=== PATIENT | male | born 1970 | race Caucasian/White ===

== ENCOUNTER 2017-10-24 17:07 | Emergency (ER) | payer BC ==
[~2017-10-24] VITALS: Ht 190.5 cm; Wt 113.4 kg
[2017-10-24] MEDS ORDERED: ATIVAN2 MG PO (19:15)
--- NOTE | 2017-10-25 19:06 | EKG ---
[facility] [address] [facility] [place] [address] Signed Sinus tachycardia Nonspecific T wave abnormality Abnormal ECG No previous ECGs available Confirmed by DENISSE AYALA MD ([id number] on 10/25/2017 7:05:57 PM Electronically Signed By: DENISSE AYALA MD 10/25/17 1906 PATIENT NAME: CHARLENE RECIO AYDEN Electrocardiogram DATE OF : 72 PHYSICIAN: DENISSE AYALA MD REPORT #: [id number] REPORT IS CONFIDENTIAL AND NOT TO BE RELEASED WITHOUT AUTHORIZATION
== END 2017-10-24 19:37 | disposition home or self-care (01) ==
LOC: ED 17:07
DX: R07.89 Other chest pain (principal); I10 Essential (primary) hypertension; F41.9 Anxiety disorder, unspecified; F17.200 Nicotine dependence, unspecified, uncomplicated; Z88.5 Allergy status to narcotic agent
CPT/HCPCS: 71020; 80053; 84484; 85025; 93005; 93010; 99284